=== PATIENT | female | born 1995 ===

== ENCOUNTER 2018-10-28 17:55 | Emergency (ER) | payer OTHER ==
[2018-10-28] MEDS ORDERED: Sodium Chloride 0.9% 1,000 ML IV STA (18:47)
[2018-10-28 19:11] LABS: EOS # 0.1 K/uL (0.0-0.7); LYMPH # 0.7 K/uL (1.0-4.3); NEUT # 6.4 K/uL (1.8-7.0)
[2018-10-28 19:19] LABS: BASO % 0.3 % (0.0-2.0); EOS % 0.7 % (0.0-4.0); LYMPH % 9.6 % (20.0-40.0); MEAN CELL VOLUME 84.6 fl (81.0-99.0); MEAN CORPUSCULAR HEMOGLOBIN 28.7 pg (27.0-31.0); MEAN CORPUSCULAR HGB CONC 33.9 g/dL (33.0-37.0); MEAN PLATELET VOLUME 7.3 fl (7.2-11.7); MONO # 0.5 K/uL (0.0-0.8); NEUT % 83.4 % (50.0-75.0); PLATELET COUNT 348 K/uL (130-400); WHITE BLOOD COUNT 7.7 K/uL (4.8-10.8)
--- NOTE | 2018-10-28 19:19 | ED PDOC ---
HPI: Influenza Time Seen by Provider: 10/28/18 18:39 Chief Complaint: Cough, Cold, Congestion Chief Complaint (Provider): Flu-like Symptoms History Per: Patient Exam Limitations: no limitations Onset/Duration Of Symptoms: Hrs (earlier today) Additional complaint(s):: 23 year old female presents to the ED for evaluation of flu-like symptoms. Patient states that she works at [employer] and while there earlier this evening, she developed generalized weakness, coughing, body aches, fever, nausea, and left ear pain. Otherwise denies vomiting, diarrhea, throat pain, chest pain, shortness of breath, and urinary symptoms. Took no meds prior to arrival. PMD: none provided Past Medical History Reviewed: Historical Data, Nursing Documentation, Vital Signs Vital Signs: Last Vital Signs Temp 100.9 F H 10/28/18 19:08 Pulse 113 H 10/28/18 18:14 Resp 18 10/28/18 18:14 BP 136/83 10/28/18 18:14 Pulse Ox 98 10/28/18 18:14 - Medical History PMH: Bronchitis - Surgical History Surgical History: No Surg Hx - Family History Family History: States: Unknown Family Hx - Social History Current smoker - smoking cessation education provided: No Alcohol: Social Drugs: Cannabis - Home Medications Home Medications: Ambulatory Orders Medication Instructions Recorded Naproxen [Naprosyn] 500 mg PO Q12H #20 tab 05/17/16 Ondansetron [Zofran Odt] 4 mg PO ASDIR PRN #10 odt 16 Ibuprofen [Motrin] 600 mg PO Q6H PRN #30 tab 10/28/18 Oseltamivir Cap [Tamiflu] 75 mg PO BID #9 cap 10/28/18 Promethazine DM [Phenergan DM 5 ml PO Q6H PRN #200 ml 10/28/18 Syrup] - Allergies Allergies/Adverse Reactions: Allergies Allergy/AdvReac Type Severity Reaction Status Date / Time No Known Allergies Allergy Verified 10/28/18 18:12 Review of Systems ROS Statement: Except As Marked, All Systems Reviewed And Found Negative Constitutional: Positive for: Fever, Weakness, Other (body aches) ENT: Positive for: Ear Pain (left). Negative for: Throat Pain Cardiovascular: Negative for: Chest Pain Respiratory: Positive for: Cough. Negative for: Shortness of Breath Gastrointestinal: Positive for: Nausea. Negative for: Vomiting, Diarrhea Genitourinary Female: Negative for: Dysuria, Frequency, Incontinence, Hematuria Physical Exam - Reviewed Nursing Documentation Reviewed: Yes Vital Signs Reviewed: Yes - Physical Exam Appears: Positive for: No Acute Distress Head Exam: Positive for: ATRAUMATIC, NORMAL INSPECTION, NORMOCEPHALIC Skin: Positive for: Normal Color, Warm. Negative for: Rash Eye Exam: Positive for: Normal appearance ENT: Positive for: TM Is/Are (unremarkable bilaterally with no perforations ot effusions; bilateral canal erythema). Negative for: Pharyngeal Erythema, Tonsillar Exudate, Tonsillar Swelling Neck: Positive for: Normal, Painless ROM, Supple Cardiovascular/Chest: Positive for: Regular Rate, Rhythm Respiratory: Positive for: Wheezing (slight right sided wheeze) Gastrointestinal/Abdominal: Positive for: Normal Exam, Soft. Negative for: Tenderness Extremity: Positive for: Normal ROM (all extremities) Neurological/Psych: Positive for: Awake, Alert, Oriented (x3). Negative for: Motor/Sensory Deficits Medical Decision Making Medical Decision Making: Time: 1846 Initial Impression: flu-like symptoms Initial Plan: --BMP --U-preg --CBC with differential --CXR --Influenza A B swab --Normal saline IV --Tylenol 975mg PO --Urinalysis --Reevaluation 2017 Flu negative. labs viewed by me, no abnormalities. CXR read as NAD by me. Patient's temperature is at 102.0 and heart rate at 114, so will give Motrin 600mg PO and continue IV fluids. Will reevaluate. 2130 Temp at 99.7, HR at 101, pulse ox 100, RR at 20, and BP at 108/64. Patient reports improvement in symptoms since her arrival, and is stable for discharge home. Advised to continue symptomatic relief of flu-like symptoms including pharmacological and nonpharmacological methods such as hydration, Tylenol/Motrin use, and rest. Scripts for Motrin, Promethazine, and Tamiflu provided with first dose of Tamiflu given in ED. Return parameters discussed and advised to follow up with PMD if needed. All questions answered and patient verbalized agreement / understanding of discharge instructions. Scribe Attestation: Documented by Sue Lubin, acting as a scribe for Jacinda Flynn APN. Provider Scribe Attestation: All medical record entries made by the Scribe were at my direction and personally dictated by me. I have reviewed the chart and agree that the record accurately reflects my personal performance of the history, physical exam, medical decision making, and the department course for this patient. I have also personally directed, reviewed, and agree with the discharge instructions and disposition. - Laboratory Results Result Diagrams: 10/28/18 19:00 10/28/18 19:00 Urine POC: Negative - ECG O2 Sat by Pulse Oximetry: 98 (RA) Pulse Ox Interpretation: Normal Disposition - Clinical Impression Clinical Impression: Influenza - Patient ED Disposition Is Patient to be Admitted: No Counseled Patient/Family Regarding: Diagnosis, Rx Given - Disposition Disposition: Routine/Home Disposition Time: 21:30 Condition: STABLE Prescriptions: Ibuprofen [Motrin] 600 mg PO Q6H PRN #30 tab PRN Reason: Pain, Moderate (4-7) Oseltamivir Cap [Tamiflu] 75 mg PO BID #9 cap Promethazine DM [Phenergan DM Syrup] 5 ml PO Q6H PRN #200 ml PRN Reason: Cough Instructions: Flu, Adult (DC) Forms: [facility] ED School/Work Excuse Print Language: MICRONESIAN - POA Present On Arrival: None
[2018-10-28 19:22] LABS: SQUAMOUS EPITHIAL 5 /hpf (0-5); URINE BACTERIA RARE (<OCC); URINE BILIRUBIN NEGATIVE (NEGATIVE); URINE BLOOD MODERATE (NEGATIVE); URINE CLARITY CLOUDY (Clear); URINE COLOR YELLOW (YELLOW); URINE GLUCOSE (UA) NEG (NEGATIVE); URINE LEUKOCYTE ESTERASE NEG Leu/uL (Negative); URINE PROTEIN NEGATIVE (NEGATIVE); URINE UROBILINOGEN 0.2-1.0 mg/dL (0.2-1.0)
[2018-10-28] MEDS ORDERED: Albuterol 0.083% Inhal Sol (2.5 mg/3 mL) UD INH STA (19:33)
[2018-10-28 19:37] LABS: BLOOD UREA NITROGEN 8 mg/dl (7-17); CALCIUM 9.4 mg/dL (8.4-10.2); GFR NON-AFRICAN AMERICAN > 60
[2018-10-28] MEDS ORDERED: Albuterol 0.083% Inhal Sol (2.5 mg/3 mL) UD ONE (19:45)
[2018-10-28 20:24] VITALS: RESP 20
[2018-10-28 20:53] LABS: EOSINOPHIL 1 % (0-7); LYMPHOCYTE 10 % (20-50); MONOCYTE 5 % (0-10); NEUTROPHIL 84 % (42-75); PLATELET ESTIMATE NORMAL (NORMAL); TOTAL CELLS COUNTED 100
[2018-10-28 20:54] LABS: GIANT PLATELETS PRESENT
[2018-10-28 21:49] VITALS: BP 108/64; PULSE 101; TEMP 99.7
[2018-10-28 21:55] VITALS: O2SAT 98
--- NOTE | 2018-10-29 09:25 | RAD ---
Date of service: 10/28/2018 HISTORY: Cough and fever. COMPARISON: Comparison chest dated 05/17/2016 TECHNIQUE: Chest PA and lateral FINDINGS: LUNGS: No active pulmonary disease. PLEURA: No significant pleural effusion identified. No pneumothorax apparent. CARDIOVASCULAR: No aortic atherosclerotic calcification present. Normal cardiac size. No pulmonary vascular congestion. OSSEOUS STRUCTURES: No significant abnormalities. VISUALIZED UPPER ABDOMEN: Normal. OTHER FINDINGS: None. IMPRESSION: No active disease.
== END 2018-10-28 21:36 | disposition home or self-care (01) ==
LOC: H.ER 17:55
DX: J11.1 Influenza due to unidentified influenza virus with other respiratory manifestations (principal)
CPT/HCPCS: 71046; 80048; 81003; 81025; 85025; 85027; 87804; 96360; 99283; J7030